=== PATIENT | female | born 2005 | race Caucasian/White ===

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

== ENCOUNTER → 2024-02-01 | Outpatient (CLI) | payer BC, SELFPAY ==
--- NOTE | 2024-02-01 15:00 | RAD_ITS ---
STUDY: X-RAY - UNILATERAL RIBS ( LEFT ) REASON FOR EXAM: Female, 18 years old. Left lower anterior rib pain recently. No injury. Patient had ribs removed from that area about 2 years ago. TECHNIQUE: 4 views of the left ribs. COMPARISON: Chest radiographs dated 11/02/2005. FINDINGS: There are 11 ribs bilaterally with 2 tiny riblets at the level of T12. There is no demonstrated left rib fracture. The visualized lung is clear and expanded. RAD/Ribs Unil 2V No CXR IMPRESSION: No demonstrated left rib fracture. Electronically Signed: Steven Mayo MD at 11:08 EDT ,
== END | disposition home or self-care (01) ==
LOC: MTRAD 14:59
PROVIDERS: PCP Family Medicine; Referring Provider Family Medicine; Visit Provider Family Medicine
DX: R07.81 Pleurodynia (principal)
CPT/HCPCS: 71100

== ENCOUNTER → 2024-08-09 | Outpatient (CLI) | payer BC, SELFPAY ==
[2024-08-11 17:06] LABS: QNTFERON TB Mitogen Value > 10.00 IU/mL (.); QNTFERON TB Nil Value 0.01 IU/mL (.); QNTFERON TB1+ Ag Value 0.03 IU/mL (.); QNTFERON TB2+ Ag Value 0.03 IU/mL (.); QNTIFERON TB Positive Criteria Negative (Negative)
== END | disposition home or self-care (01) ==
LOC: MTLAB 14:46
PROVIDERS: PCP Family Medicine; Referring Provider Physician Assistant; Visit Provider Physician Assistant
DX: L40.0 Psoriasis vulgaris (principal); Z79.899 Other long term (current) drug therapy
CPT/HCPCS: 36415; 86480